=== PATIENT | female | born 1990 | race Caucasian/White ===

== ENCOUNTER → 2016-08-19 | Outpatient (CLI) | payer OTHER ==
[~2016-08-19] MED LIST: BIRTH CONTROL PO; CYCL10TA9; DICY20TA57 PO; MELO15TA14; ONDAN4ODT PO; OXYC-12 PO; PREN1TAB14 PO; RNT150T PO; TRM50T PO
--- NOTE | 2016-08-19 17:02 | Diagnostic Imaging Report ---
US NON OB PELVIS COMP/TRANSVAG INDICATION: Irregular bleeding. COMPARISONS: None available. TECHNIQUE: Transabdominal and transvaginal grayscale, color Doppler and pulse duplex imaging of the pelvis was performed. FINDINGS: The uterus measures 8.0 x 5.4 x 3.8 cm. The myometrium is normal in echogenicity without discrete mass. The endometrium measures up to 0.2 cm where visualized, and is normal in echogenicity. The right ovary measures 3.5 x 2.2 x 2.8 cm. The left ovary is not visualized due to overlying bowel gas. Right ovary has a normal blood flow within it by color Doppler imaging. No suspicious adnexal mass or fluid collection. No free pelvic fluid. IMPRESSION: 1. Normal appearance of the endometrium measuring up to 0.2 cm. 2. No myometrial mass, such as fibroid. 3. Normal right ovary. Left ovary is obscured by overlying bowel gas. Dictated by: Dictated on workstation # [id number]
== END ==
LOC: RAD 15:41
PROVIDERS: ATTEND Nurse Practitioner
DX: N93.8 Other specified abnormal uterine and vaginal bleeding (principal)
CPT/HCPCS: 76830; 76856

== ENCOUNTER → 2019-11-30 | Outpatient (CLI) | payer OTHER ==
--- NOTE | 2019-11-30 16:21 | Diagnostic Imaging Report ---
PROCEDURE: US non-OB pelvis comp/trans. TECHNIQUE: Multiple realtime grayscale images were obtained of the pelvis in various projections, endovaginally. Transabdominal imaging was also performed. INDICATION: Pelvic pain. COMPARISON: Correlation is made with prior pelvic ultrasound from 08/19/2016. FINDINGS: The uterus is anteverted, measuring 8.8 x 4.0 x 5.2 cm. Endometrium is 8 mm in thickness. No myometrial mass is detected. Right ovary measures 3.1 x 2.7 x 2.4 cm and the left ovary measures 3.5 x 2.5 x 1.8 cm. There is a questionable hypoechoic mass involving the right ovary approximately 2.4 cm in diameter. This could represent a hemorrhagic cyst. The right ovary is unremarkable. Right ovary contains small follicles. No free fluid is seen. There is blood flow, bilaterally. IMPRESSION: Questionable hypoechoic mass in the left ovary, perhaps a hemorrhagic cyst. Continued follow-up is recommended to confirm resolution. No other significant abnormality is detected. Dictated on workstation # [id number]
== END ==
LOC: RAD 14:15
PROVIDERS: ATTEND Surgery
DX: N83.201 Unspecified ovarian cyst, right side (principal)
CPT/HCPCS: 76830; 76856

== ENCOUNTER 2021-03-23 05:33 | Outpatient (CLI) | payer OTHER ==
[~2021-03-23] VITALS: Ht 165 cm; Wt 73.2 kg
[2021-03-23] MEDS ORDERED: MULTIVITAMIN (11:17)
[2021-03-23] MEDS ORDERED: VITAMIN B12 (11:17)
[2021-03-23] MEDS ORDERED: VENL75CA93 PO (11:17)
[2021-03-23] MEDS ORDERED: BIOTIN (11:17)
== END 2021-03-23 11:19 | disposition home or self-care (01) ==
LOC: PREOP 05:33
PROVIDERS: ATTEND Obstetrics & Gynecology
DX: Z01.818 Encounter for other preprocedural examination (principal)

== ENCOUNTER 2021-03-30 07:50 | Day surgery (SDC) | payer OTHER ==
[2021-03-30] VITALS (12 sets, daily range): BP systolic 86–120; BP diastolic 56–76
[~2021-03-30] VITALS: Ht 165 cm; Wt 73.2 kg
[~2021-03-30 07:50] MED LIST changes: +BIOTIN; +MULTIVITAMIN; +VENL75CA93 PO; +VITAMIN B12
[2021-03-30] MEDS: LACTATED RINGERS 1,000 ML IV PRN ×2 (08:26→10:10)
[2021-03-30] MEDS ORDERED: BUPIVACAINE 0.25% 30 ML (SENSORCAINE) VIAL ONE (08:38)
[2021-03-30 08:44] LABS: BASOPHILS # (AUTO) 0.1 10^3/uL (0.0-0.1); BASOPHILS % (AUTO) 2 % (0-10); EOSINOPHILS # (AUTO) 0.2 10^3/uL (0.0-0.3); EOSINOPHILS % (AUTO) 4 % (0-10); HEMATOCRIT 38 % (35-52); HEMOGLOBIN 12.8 g/dL (11.5-16.0); LYMPHOCYTES # (AUTO) 1.3 10^3/uL (1.0-4.0); LYMPHOCYTES % (AUTO) 25 % (12-44); MEAN CORPUSCULAR HEMOGLOBIN 31 pg (25-34); MEAN CORPUSCULAR HGB CONC 33 g/dL (32-36); MEAN CORPUSCULAR VOLUME 92 fL (80-99); MEAN PLATELET VOLUME 10.7 fL (9.0-12.2); MONOCYTES # (AUTO) 0.5 10^3/uL (0.0-1.0); MONOCYTES % (AUTO) 10 % (0-12); NEUTROPHILS # (AUTO) 3.1 10^3/uL (1.8-7.8); NEUTROPHILS % (AUTO) 59 % (42-75); PLATELET COUNT 293 10^3/uL (130-400); WHITE BLOOD COUNT 5.2 10^3/uL (4.3-11.0)
[2021-03-30] MEDS ORDERED: ROCURONIUM 10 MG/ML 5 ML SYRINGE IV ONE (09:20)
[2021-03-30] MEDS ORDERED: GLYCOPYRROLATE 0.2 MG/ML (ROBINUL) 2 ML VIAL ONE (09:20)
[2021-03-30] MEDS ORDERED: fentaNYL INJ 100 MCG/2 ML AMP ONE (09:20)
[2021-03-30] MEDS ORDERED: proPOfol 200 MG/20 ML (DIPRIVAN) VIAL IV ONE (09:20)
[2021-03-30] MEDS ORDERED: MIDAZOLAM 2 MG/2 ML (VERSED) VIAL ONE (09:20)
[2021-03-30] MEDS ORDERED: LIDOCAINE PF 2% 5 ML (XYLOCAINE) VIAL ONE (09:20)
[2021-03-30] MEDS ORDERED: ONDANSETRON 4 MG/2 ML (SDV) Z0FRAN ONE (09:20)
[2021-03-30] MEDS ORDERED: NEOSTIGMINE 3 MG/3 ML VIAL ONE (09:20)
--- NOTE | 2021-03-30 09:43 | Progress Note-Pre Operative ---
Pre-Operative Progress Note H&P Reviewed The H&P was reviewed, patient examined and no changes noted. Date Seen by Provider: Mar 30, 2021 Time Seen by Provider: 09:35 Date H&P Reviewed: Mar 30, 2021 Time H&P Reviewed: 09:35 Pre-Operative Diagnosis: CPP, Dysmenorrhea, Dyspareunia JIMMIE PORTILLO DO Mar 30, 2021 09:43
[2021-03-30] MEDS ORDERED: ONDANSETRON 4 MG/2 ML (SDV) Z0FRAN IVP PRN ×2 (09:45→11:30)
[2021-03-30] MEDS ORDERED: KETOROLAC 30 MG/ML VIAL IVP ONE (09:45)
[2021-03-30] MEDS ORDERED: D5 LR IV SOLUTION 1,000 ML IV SCH (09:45)
[2021-03-30] MEDS ORDERED: HYDROcodone/APAP 5 MG/325 MG (LORTAB) TAB PO PRN (09:45)
[2021-03-30] MEDS ORDERED: ACHD5005 PO (09:46)
[2021-03-30] MEDS ORDERED: IBUP-1773 PO (09:46)
--- NOTE | 2021-03-30 09:47 | Discharge Inst-Women's Service ---
Discharge Inst-Women's Serv Depart Medication/Instructions New, Converted or Re-Newed RX: RX on Chart Problems Reviewed?: Yes Consults/Follow Up Additional Follow Up: Yes Orders/Referrals Dr. Mccormack in 7-10 days Activity Activity: Activity as Tolerated Driving Instructions: You May Drive (do not drive while taking narcotic pain meds) NO SMOKING: NO SMOKING Nothing Inside Vagina: No Douching, No [place], No Tampons Diet Discharge Diet: No Restrictions Symptoms to Report to : Bleeding Excessive, Pain Increased, Fever Over 101 Degrees F, Vaginal Bleeding Increase, Questions/Concerns For Any Problems or Questions: Contact Your Physician Skin/Wound Care Infection Signs and Symptoms: Increased Redness, Foul Odor of Wound, Increased Drainage, Skin Itchy or Has a Rash, Increased Swelling, Temperature Above 101 F Operative Area Clean and Dry: Keep Incision Clean/Dry Stitches/Elijah/Dermabond: Dermabond, Care of Stitches Bathing Instructions: JIMMIE Juarez DO Mar 30, 2021 09:47
[2021-03-30] MEDS ORDERED: KETOROLAC 30 MG/ML VIAL ONE (11:13)
[2021-03-30] MEDS ORDERED: morphine INJ 10 MG/ML 1ML (SYR OR VIAL) IVP ONE (11:30)
[2021-03-30] MEDS ORDERED: HYDROmorphone 2 MG/ML VIAL (DILAUDID) IV ONE (11:30)
--- NOTE | 2021-03-30 13:15 | Anesthesia-General Post-Op ---
General Patient Condition Mental Status/LOC: Same as Preop Cardiovascular: Satisfactory Nausea/Vomiting: Absent Respiratory: Satisfactory Pain: Controlled Complications: Absent Post Op Complications Complications None Follow Up Care/Instructions Patient Instructions None needed. Anesthesia/Patient Condition Patient Condition Patient is already discharged to home but she was doing well, no complaints, stable vital signs, no apparent adverse anesthesia problems per nursing staff. CRUZ NGO DO Mar 30, 2021 13:15
[2021-03-30] MEDS ORDERED: SEVOFLURANE (ULTANE) 15 ML INHAL SOLN ONE ×2 (13:21→13:22)
--- NOTE | 2021-03-30 19:54 | OPERATIVE REPORT ---
DATE OF SERVICE: 03/30/2021 PREOPERATIVE DIAGNOSES: 1. A 30-year-old female with chronic pelvic pain. 2. Dyspareunia. 3. Dysmenorrhea. POSTOPERATIVE DIAGNOSES: 1. A 30-year-old female with chronic pelvic pain. 2. Dyspareunia. 3. Dysmenorrhea. 4. Bilateral hydrosalpinx and endometriosis implants. PROCEDURES PERFORMED: Laparoscopic bilateral salpingectomy with cauterization of peritoneal endometriosis implants. SURGEON: Jimmie Mccormack DO. MEDICAL DETAIL REPRESENTATIVE: Ruchi Villalba DNP, who was necessary for manipulation and retraction throughout the procedure. ANESTHESIA: General endotracheal. ESTIMATED BLOOD LOSS: Minimal. URINE OUTPUT: 150 mL clear at the end of the procedure. FLUIDS: 1000 mL of lactated Ringer's solution. FINDINGS: A grossly normal-appearing uterus with endometriosis implants of the posterior cul-de-sac including the uterosacral ligaments bilaterally and the ovarian fossa to the right. There are also endometriosis implants of the vesicouterine peritoneum. Tubes bilaterally were noted to have a hydrosalpinx with multiple clips across the fallopian tubes and evidence of prior tubal ligation. SPECIMEN SENT: Bilateral fallopian tubes. INDICATIONS FOR PROCEDURE: This 30-year-old female patient, who is consulted to me from Sandra Hayes, nurse practitioner for evaluation of chronic pelvic pain and consider a diagnostic laparoscopy. The patient reported pain ever since her tubal ligation, which was performed approximately two years ago. She has tried hormonal suppression with oral contraceptive pills and IUD in the past with no resolution in her symptoms. Therefore, she is desperate to proceed with more diagnostic procedures that could be definitive. Risk of diagnostic laparoscopy was reviewed with the patient in detail and after all of her questions were answered, consent was obtained in the preoperative area with her present and the patient was taken to the operating room. OPERATIVE REPORT IN DETAIL: Once in the operating room, general anesthesia was found to be adequate. She was placed in a dorsal lithotomy position and prepped and draped in a normal sterile fashion. A timeout was performed. A Ramirez catheter was placed using sterile technique. A weighted speculum inserted to the patient's vagina. A right angle retractor was used to visualize the cervix, which was grasped at 12 o'clock position using a long Allis clamp. I then gently sounded the uterine cavity, depth was found to be 8 cm. I placed a Kronner uterine manipulator to a depth of 8 cm deploying the balloon within the uterine cavity and removed all the other instruments from the patient's vagina, performed a change of gloves and took my attention to the abdomen, where a fingerbreadth below the subcostal margin and midclavicular line on the left, I placed a Veress needle through the skin and into the peritoneal cavity using a saline drop test. I was able to confirm intraperitoneal placement. I then proceeded with insufflation using CO2 gas and opening pressure of 2 mmHg was noted. I proceeded to maximum pressure of 15 mmHg, at which point, I made an infraumbilical incision that is 5 mm and directed a 5 mm blunt laparoscopic trocar through the incision until intraperitoneal placement was confirmed using a laparoscope. A brief scanning of the upper abdominal anatomy revealed no evidence of damage upon my Veress entry site. I removed the Veress needle at that point. I then had the patient placed in a steep Trendelenburg, which I was able to visualize all my pelvic anatomy as defined in my findings above. I then placed a suprapubic trocar; it was a 12 mm trocar. The skin was infiltrated using 0.25% Marcaine. A 12 mm incision was made with a knife and the trocar was placed under direct visualization of the laparoscope. Once this trocar was in place, I removed bilateral fallopian tubes while performing the following dissection bilaterally. Using a LigaSure device, I transected the proximal isthmic portion of the fallopian tube and took this dissection down the mesosalpinx, amputating bilateral fallopian tubes from the surrounding blood supply and removing the remainder of the clips from the mesosalpinx. Once this was done bilaterally, there was no active bleeding noted from either one of my dissection planes. I then cauterized the endometriosis implants that I identified and discussed in my findings above using a J hook cautery, after which, there was found to be no active bleeding from any of my dissection planes. I copiously irrigated the pelvis using normal saline with no active bleeding noted from any of my dissection planes. I then removed the suprapubic trocar under direct visualization of the laparoscope and infraumbilical trocar was left in place to release insufflation and introduced 10 mL of 0.25% Marcaine into the peritoneal cavity for postoperative pain management. I then removed this trocar as well. The fascia of the larger trocar site was reapproximated using 0 Vicryl suture in an interrupted fashion. The skin of both sites was then closed using 4-0 Monocryl in an interrupted subcuticular stitches. Dermabond was applied to the incision and Band-Aids were placed over the incisions as well. Ramirez catheter and Kronner uterine manipulator was removed at the end of the procedure. The patient tolerated the procedure well and was taken to the recovery area in a stable condition. Lap and sponge counts were correct at the end of the procedure. Instrument counts were correct as well. Job ID: [id number] DocumentID: [id number] Dictated Date: 03/30/2021 11:00:02 Driver Starting Gate Date: 03/30/2021 19:53:43 Dictated By: JIMMIE MCCORMACK DO
== END 2021-03-30 12:58 | disposition home or self-care (01) ==
LOC: SDC 07:50
PROVIDERS: ATTEND Obstetrics & Gynecology
DX: N70.11 Chronic salpingitis (principal); N80.9 Endometriosis, unspecified; N94.10 Unspecified dyspareunia; F41.9 Anxiety disorder, unspecified; Z98.51 Tubal ligation status; Z79.899 Other long term (current) drug therapy
CPT/HCPCS: 36415; 84703; 85025; 86850; 86900; 86901; 87081; 88302

== ENCOUNTER → 2021-08-28 | Outpatient (CLI) | payer OTHER ==
[~2021-08-28] MED LIST changes: +ACHD5005 PO; +IBUP-1773 PO
--- NOTE | 2021-08-28 15:29 | Diagnostic Imaging Report ---
PROCEDURE: Pelvic comp/transvaginal sonogram. TECHNIQUE: Complete transabdominal and transvaginal pelvic ultrasound was performed. In addition, limited pelvic Doppler was performed. INDICATION: Abnormal uterine bleeding. Uterus is anteverted measuring 8.0 x 4.2 x 5.7 cm. Endometrium is 3 mm in thickness. No myometrial masses detected. Right ovary measures 3.1 x 1.5 x 2.8 cm and the left ovary measures 2.8 x 2.0 x 2.5 cm. There is blood flow to the ovaries. Ovaries contain small follicles. No adnexal mass or free fluid is detected. IMPRESSION: Unremarkable transabdominal and transvaginal pelvic ultrasound. Dictated by: Dictated on workstation # [id number]
== END ==
LOC: RAD 14:00
PROVIDERS: ATTEND Obstetrics & Gynecology
DX: N93.9 Abnormal uterine and vaginal bleeding, unspecified (principal)
CPT/HCPCS: 76830; 76856

== ENCOUNTER 2021-09-21 05:29 | Outpatient (CLI) | payer OTHER ==
[~2021-09-21] VITALS: Ht 165.1 cm; Wt 78.1 kg
== END 2021-09-21 14:00 ==
LOC: PREOP 05:29
PROVIDERS: ATTEND Obstetrics & Gynecology
DX: Z01.818 Encounter for other preprocedural examination (principal)

== ENCOUNTER 2021-09-28 07:29 | Day surgery (SDC) | payer OTHER ==
[2021-09-28] VITALS (12 sets, daily range): BP systolic 102–123; BP diastolic 72–85
[~2021-09-28] VITALS: Ht 165.1 cm; Wt 78.1 kg
--- NOTE | 2021-09-28 08:05 | Progress Note-Pre Operative ---
Pre-Operative Progress Note H&P Reviewed The H&P was reviewed, patient examined and no changes noted. Date Seen by Provider: Sep 28, 2021 Time Seen by Provider: 08:00 Date H&P Reviewed: Sep 28, 2021 Time H&P Reviewed: 08:00 Pre-Operative Diagnosis: JIMMIE CONKLIN DO Sep 28, 2021 08:05
--- NOTE | 2021-09-28 08:09 | Discharge Inst-Women's Service ---
Discharge Inst-Women's Serv Depart Medication/Instructions New, Converted or Re-Newed RX: Transmitted to Pharmacy Problems Reviewed?: Yes Consults/Follow Up Additional Follow Up: Yes Orders/Referrals Dr. Portillo in 2 weeks Activity Activity: Activity as Tolerated Driving Instructions: You May Drive NO SMOKING: NO SMOKING Nothing Inside Vagina: No Douching, No [place], No Tampons Diet Discharge Diet: No Restrictions Symptoms to Report to : Bleeding Excessive, Pain Increased, Fever Over 101 Degrees F, Vaginal Bleeding Increase, Questions/Concerns For Any Problems or Questions: Contact Your Physician Skin/Wound Care Infection Signs and Symptoms: Increased Redness, Foul Odor of Wound, Increased Drainage, Skin Itchy or Has a Rash, Increased Swelling, Temperature Above 101 F Operative Area Clean and Dry: Keep Incision Clean/Dry JIMMIE PORTILLO DO Sep 28, 2021 08:09
[2021-09-28] MEDS ORDERED: IBUP-1773 PO (08:10)
[2021-09-28] MEDS ORDERED: ACHD5005 PO (08:10)
[2021-09-28] MEDS ORDERED: KETOROLAC 30 MG/ML VIAL IVP ONE (08:15)
[2021-09-28] MEDS ORDERED: HYDROcodone/APAP 5 MG/325 MG (LORTAB) TAB PO PRN (08:15)
[2021-09-28] MEDS ORDERED: ONDANSETRON 4 MG/2 ML (SDV) Z0FRAN IVP PRN ×2 (08:15→11:00)
[2021-09-28] MEDS ORDERED: D5 LR IV SOLUTION 1,000 ML IV SCH (08:15)
[2021-09-28 08:33] LABS: BASOPHILS # (AUTO) 0.1 10^3/uL (0.0-0.1); BASOPHILS % (AUTO) 1 % (0-10); EOSINOPHILS # (AUTO) 0.2 10^3/uL (0.0-0.3); EOSINOPHILS % (AUTO) 5 % (0-10); HEMATOCRIT 38 % (35-52); HEMOGLOBIN 12.5 g/dL (11.5-16.0); LYMPHOCYTES # (AUTO) 1.6 10^3/uL (1.0-4.0); LYMPHOCYTES % (AUTO) 32 % (12-44); MEAN CORPUSCULAR HEMOGLOBIN 30 pg (25-34); MEAN CORPUSCULAR HGB CONC 33 g/dL (32-36); MEAN CORPUSCULAR VOLUME 90 fL (80-99); MEAN PLATELET VOLUME 10.5 fL (9.0-12.2); MONOCYTES # (AUTO) 0.6 10^3/uL (0.0-1.0); MONOCYTES % (AUTO) 11 % (0-12); NEUTROPHILS # (AUTO) 2.5 10^3/uL (1.8-7.8); NEUTROPHILS % (AUTO) 50 % (42-75); PLATELET COUNT 285 10^3/uL (130-400)
[2021-09-28] MEDS: LACTATED RINGERS 1,000 ML IV PRN ×2 (08:36→10:41)
[2021-09-28] MEDS ORDERED: BUPIVACAINE 0.25% 30 ML (SENSORCAINE) VIAL ONE (09:19)
[2021-09-28] MEDS ORDERED: fentaNYL INJ 100 MCG/2 ML AMP ONE (09:25)
[2021-09-28] MEDS ORDERED: MIDAZOLAM 2 MG/2 ML (VERSED) VIAL ONE (09:26)
[2021-09-28] MEDS ORDERED: proPOfol 200 MG/20 ML (DIPRIVAN) VIAL IV ONE (10:35)
[2021-09-28] MEDS ORDERED: LIDOCAINE PF 2% 5 ML (XYLOCAINE) VIAL ONE (10:35)
[2021-09-28] MEDS ORDERED: ONDANSETRON 4 MG/2 ML (SDV) Z0FRAN ONE (10:35)
[2021-09-28] MEDS ORDERED: SEVOFLURANE (ULTANE) 15 ML INHAL SOLN ONE (10:42)
[2021-09-28] MEDS ORDERED: morphine INJ 10 MG/ML 1ML (SYR OR VIAL) IVP ONE (11:00)
[2021-09-28] MEDS ORDERED: KETOROLAC 30 MG/ML VIAL ONE (11:02)
--- NOTE | 2021-09-28 11:59 | Anesthesia-General Post-Op ---
General Patient Condition Mental Status/LOC: Same as Preop Cardiovascular: Satisfactory Nausea/Vomiting: Absent Respiratory: Satisfactory Pain: Controlled Complications: Absent Post Op Complications Complications None Follow Up Care/Instructions Patient Instructions None needed. Anesthesia/Patient Condition Patient Condition Patient is doing well, no complaints, stable vital signs, no apparent adverse anesthesia problems. CRUZ NGO DO Sep 28, 2021 11:59
--- NOTE | 2021-09-28 19:17 | OPERATIVE REPORT ---
DATE OF SERVICE: 09/28/2021 PREOPERATIVE DIAGNOSIS: A 30-year-old female with heavy abnormal uterine bleeding. POSTOPERATIVE DIAGNOSIS: A 30-year-old female with heavy abnormal uterine bleeding. PROCEDURE: D and C with Estella endometrial ablation. SURGEON: Pete Portillo DO ANESTHESIA: LMA general. ESTIMATED BLOOD LOSS: Minimal. URINE OUTPUT: 50 mL drained at the start of procedure. FLUIDS: 800 mL lactated Ringer's solution. FINDINGS: A grossly normal appearing external female genitalia, grossly normal appearing endometrium with a copious amount of fluffy endometrial tissue. SPECIMEN SENT: Endometrial curettings. INDICATIONS FOR PROCEDURE: This 30-year-old female is a patient who had sought care for ongoing issues with heavy vaginal bleeding with her periods and they are now becoming heavier and longer and more painful. Due to the patient's concern with the heaviness of the periods, we discussed conservative options. She had already tried an IUD and contraceptives in the past without any relief. Finally, I discussed endometrial ablation since the patient had had a tubal ligation and the risk of was very low. I discussed with the patient endometrial ablation and performed a D and C at the same time. Risks of procedure were discussed with the patient in detail including risk of bleeding, damage to the uterus itself, postoperative complications that may occur, risk from anesthesia, recovery timeframe. After everything was discussed with the patient in detail, consent was obtained and the patient was taken to the operating room. OPERATIVE REPORT IN DETAIL: Once in the operating room, general anesthesia was found to be adequate. The patient was placed in dorsal lithotomy position, prepped and draped in normal sterile fashion. A weighted speculum was inserted to the patient's vagina after a timeout was performed. A right-angle retractor was utilized. Cervix was grasped at 12 o'clock position using a long single tooth tenaculum. I then gently sounded the uterine cavity, depth was found to be approximately 8 cm. I then gently dilated the cervix to approximately 6 mm to allow placement of a hysteroscope. Once this was done, I used a hysteroscope to advance into the uterus and using the [employer] fluid management system and normal saline as my visual medium, I advanced the hysteroscope and I am able to visualize the endometrial cavity, which appears to be grossly normal with the exception of excessive amounts of fluffy endometrial tissue. I then removed the hysteroscope and performed a gentle curettage of the entire endometrial cavity. After this was performed and the specimen was collected and sent as endometrial curettings. I then sounded the cavity depth using the Estella device and found to have a uterine endometrial cavity approximately 4 cm. I set the Estella device to 4 cm. I advanced it into the uterus where I deployed the wings of the device and set it into the endometrial cavity appropriately. I then filled the seal balloon at the cervix and performed the device check using the Estella which was successful. I then activated the Estella device and after 120 seconds of ablation removed the device after I removed the insufflation to the cervix seal. Once the device was removed, I performed a second hysteroscopy and there is evidence of good endometrial charring effect throughout the entire cavity after which I removed the hysteroscope. The patient tolerated the procedure well and sent to recovery area in stable condition. Lap and sponge counts were correct at the end of the procedure. Instrument counts correct as well. All instruments removed from the patient's vagina. Job ID: [id number] DocumentID: [id number] Dictated Date: 09/28/2021 11:55:19 Calender Let Off Helper Date: 09/28/2021 19:16:38 Dictated By: PETE PORTILLO DO
== END 2021-09-28 16:28 | disposition home or self-care (01) ==
LOC: SDC 07:29
PROVIDERS: ATTEND Obstetrics & Gynecology
DX: N92.0 Excessive and frequent menstruation with regular cycle (principal); N94.6 Dysmenorrhea, unspecified; N93.0 Postcoital and contact bleeding; Z98.51 Tubal ligation status
CPT/HCPCS: 36415; 84703; 85025; 86850; 86900; 86901; 87081

== ENCOUNTER → 2021-11-04 | Outpatient (CLI) | payer OTHER ==
[~2021-11-04] VITALS: Ht 165.1 cm; Wt 75.0 kg
== END ==
LOC: PREOP 07:50
PROVIDERS: ATTEND Obstetrics & Gynecology
DX: Z01.818 Encounter for other preprocedural examination (principal)

== ENCOUNTER 2021-11-09 07:33 | Day surgery (SDC) | payer OTHER ==
[2021-11-09] VITALS (10 sets, daily range): BP systolic 112–133; BP diastolic 64–88
[~2021-11-09] VITALS: Ht 165.1 cm; Wt 75.0 kg
[2021-11-09] MEDS ORDERED: ceFAZolin 2 GM IV Premixed 50 ML IV ONE (07:45)
[2021-11-09] MEDS ORDERED: metroNIDAZOLE 500MG/100ML IVPB 100 ML IV ONE (07:45)
[2021-11-09] MEDS: LACTATED RINGERS 1,000 ML IV PRN ×2 (08:00→09:40)
[2021-11-09 08:07] LABS: BASOPHILS # (AUTO) 0.1 10^3/uL (0.0-0.1); BASOPHILS % (AUTO) 1 % (0-10); EOSINOPHILS # (AUTO) 0.2 10^3/uL (0.0-0.3); EOSINOPHILS % (AUTO) 3 % (0-10); HEMATOCRIT 42 % (35-52); HEMOGLOBIN 14.2 g/dL (11.5-16.0); LYMPHOCYTES # (AUTO) 1.6 10^3/uL (1.0-4.0); LYMPHOCYTES % (AUTO) 24 % (12-44); MEAN CORPUSCULAR HEMOGLOBIN 31 pg (25-34); MEAN CORPUSCULAR HGB CONC 34 g/dL (32-36); MEAN CORPUSCULAR VOLUME 91 fL (80-99); MEAN PLATELET VOLUME 10.3 fL (9.0-12.2); MONOCYTES # (AUTO) 0.6 10^3/uL (0.0-1.0); MONOCYTES % (AUTO) 8 % (0-12); NEUTROPHILS # (AUTO) 4.2 10^3/uL (1.8-7.8); NEUTROPHILS % (AUTO) 64 % (42-75); PLATELET COUNT 321 10^3/uL (130-400); WHITE BLOOD COUNT 6.6 10^3/uL (4.3-11.0)
[2021-11-09] MEDS ORDERED: BUPIVACAINE 0.25% 10 ML (SENSORCAINE) VIAL ONE (08:11)
--- NOTE | 2021-11-09 08:39 | Progress Note-Pre Operative ---
Pre-Operative Progress Note H&P Reviewed The H&P was reviewed, patient examined and no changes noted. Date Seen by Provider: Nov 09, 2021 Time Seen by Provider: 08:35 Date H&P Reviewed: Nov 09, 2021 Time H&P Reviewed: 08:35 Pre-Operative Diagnosis: AUB, Menorhagia JIMMIE PORTILLO DO Nov 09, 2021 08:39
--- NOTE | 2021-11-09 08:42 | Discharge Inst-Women's Service ---
Discharge Inst-Women's Serv Depart Medication/Instructions New, Converted or Re-Newed RX: Transmitted to Pharmacy Final Diagnosis POD 0 RATLH Problems Reviewed?: Yes Consults/Follow Up Additional Follow Up: Yes Orders/Referrals Dr. Mccormack in 7-10 days and in 8 weeks Activity Activity: Activity as Tolerated Driving Instructions: No Driving for 1 Week NO SMOKING: NO SMOKING Nothing Inside Vagina: No Douching, No [place], No Tampons Diet Discharge Diet: No Restrictions Symptoms to Report to : Bleeding Excessive, Pain Increased, Fever Over 101 Degrees F, Vaginal Bleeding Increase, Questions/Concerns For Any Problems or Questions: Contact Your Physician Skin/Wound Care Infection Signs and Symptoms: Increased Redness, Foul Odor of Wound, Increased Drainage, Skin Itchy or Has a Rash, Increased Swelling, Temperature Above 101 F Operative Area Clean and Dry: Keep Incision Clean/Dry Stitches/Robbins/Dermabond: Dermabond, Care of Stitches Bathing Instructions: JIMMIE Juarez DO Nov 09, 2021 08:42
[2021-11-09] MEDS ORDERED: BENZ1LOZ61 MM (08:43)
[2021-11-09] MEDS ORDERED: IBUP-844 PO (08:43)
[2021-11-09] MEDS ORDERED: SMT80CT PO (08:43)
[2021-11-09] MEDS ORDERED: HYDR-34 PO (08:43)
[2021-11-09] MEDS ORDERED: DOCU100C37 PO (08:43)
[2021-11-09] MEDS ORDERED: LACTATED RINGERS 1,000 ML IV SCH (08:45)
[2021-11-09] MEDS ORDERED: ANTACID SUSP 30 ML UDC (MYLANTA) PO PRN (08:45)
[2021-11-09] MEDS ORDERED: ONDANSETRON 4 MG/2 ML (SDV) Z0FRAN IV PRN (08:45)
[2021-11-09] MEDS ORDERED: DOCUSATE SODIUM 100 MG (COLACE) CAP PO PRN (08:45)
[2021-11-09] MEDS ORDERED: CHLORASEPTIC LOZENGE MM PRN (08:45)
[2021-11-09] MEDS ORDERED: HYDROcodone/APAP 7.5 MG/325 MG (LORTAB, LORCET PLUS) TABLET PO PRN (08:45)
[2021-11-09] MEDS ORDERED: NALOXONE 0.4 MG/ML 1 ML (NARCAN) VIAL IV PRN (08:45)
[2021-11-09] MEDS ORDERED: ZOLPIDEM 5 MG (AMBIEN) TAB PO PRN (08:45)
[2021-11-09] MEDS ORDERED: SIMETHICONE 80 MG (MYLICON) CHEW PO PRN (08:45)
[2021-11-09] MEDS ORDERED: proPOfol 200 MG/20 ML (DIPRIVAN) VIAL IV ONE (08:48)
[2021-11-09] MEDS ORDERED: GLYCOPYRROLATE 0.2 MG/ML (ROBINUL) 2 ML VIAL ONE (08:48)
[2021-11-09] MEDS ORDERED: NEOSTIGMINE 3 MG/3 ML VIAL ONE (08:48)
[2021-11-09] MEDS ORDERED: MIDAZOLAM 2 MG/2 ML (VERSED) VIAL ONE (08:48)
[2021-11-09] MEDS ORDERED: ROCURONIUM 10 MG/ML 5 ML SYRINGE IV ONE (08:48)
[2021-11-09] MEDS ORDERED: LIDOCAINE PF 2% 5 ML (XYLOCAINE) VIAL ONE (08:48)
[2021-11-09] MEDS ORDERED: ONDANSETRON 4 MG/2 ML (SDV) Z0FRAN ONE (08:48)
[2021-11-09] MEDS ORDERED: fentaNYL INJ 100 MCG/2 ML AMP ONE (08:48)
[2021-11-09] MEDS ORDERED: HYDROmorphone 2 MG/ML VIAL (DILAUDID) ONE (10:17)
[2021-11-09] MEDS ORDERED: ONDANSETRON 4 MG/2 ML (SDV) Z0FRAN IVP PRN (10:45)
[2021-11-09] MEDS ORDERED: HYDROmorphone 2 MG/ML VIAL (DILAUDID) IV ONE (10:45)
[2021-11-09] MEDS ORDERED: morphine INJ 10 MG/ML 1ML (SYR OR VIAL) IVP ONE (10:45)
[2021-11-09] MEDS ORDERED: SEVOFLURANE (ULTANE) 15 ML INHAL SOLN ONE (10:51)
[2021-11-09] MEDS ORDERED: IBUPROFEN 600 MG (MOTRIN) TAB PO SCH (12:00)
[2021-11-09] MEDS: KETOROLAC 30 MG/ML VIAL IVP PRN ×2 (12:47→18:28)
--- NOTE | 2021-11-09 14:45 | Anesthesia-General Post-Op ---
General Patient Condition Mental Status/LOC: Same as Preop Cardiovascular: Satisfactory Nausea/Vomiting: Absent Respiratory: Satisfactory Pain: Controlled Complications: Absent Post Op Complications Complications None Follow Up Care/Instructions Patient Instructions None needed. Anesthesia/Patient Condition Patient Condition Patient is doing well, no complaints, stable vital signs, no apparent adverse anesthesia problems. CRUZ NGO DO Nov 09, 2021 14:45
--- NOTE | 2021-11-09 15:56 | OPERATIVE REPORT ---
DATE OF SERVICE: PREOPERATIVE DIAGNOSES: 1. A 31-year-old female with abnormal uterine bleeding. 2. Menorrhagia. POSTOPERATIVE DIAGNOSES: 1. A 31-year-old female with abnormal uterine bleeding. 2. Menorrhagia. PROCEDURE: Robotic-assisted total laparoscopic hysterectomy. SURGEON: Pete Mccormack DO ADOBE FLEX DEVELOPER: Ruchi Villalba DNP, was necessary for manipulation and retraction throughout the procedure. ANESTHESIA: General endotracheal. ESTIMATED BLOOD LOSS: Minimal. URINE OUTPUT: 25 mL clear at the end of the procedure. FLUIDS: 1400 mL lactated Ringer's solution. FINDINGS: Grossly normal-appearing external female genitalia, grossly normal-appearing uterus on laparoscopic evaluation, evidence of prior tubal ligation with residual fallopian tissue atrophy. Grossly normal-appearing bilateral ovaries. SPECIMEN SENT: Uterus and cervix. INDICATIONS FOR PROCEDURE: This 31-year-old female is a patient who had sought care in my office for concerns with uncontrolled heavy bleeding. She had tried more conservative measures in the past including IUD, control pills, Depo-Provera injection. We also proceeded with D and C with endometrial ablation, all of which she continued to bleed despite those measures. Due to frustration and ongoing concern, the patient wished to proceed with a hysterectomy. Risks of procedure were discussed with the patient in detail including risk of bleeding, infection, damage to any surrounding structures including, but not limited to bowel, bladder, ureter, kidneys, possible need for reoperation, postoperative complications that may occur, risk from anesthesia, recovery timeframe, hospital stay. After everything was discussed with the patient in detail, consent was obtained in the preoperative area, the patient was taken to the operating room. OPERATIVE REPORT IN DETAIL: Once in the operating room, general anesthesia was found to be adequate. She was placed in dorsal lithotomy position, prepped and draped in normal sterile fashion. Timeout was performed. A Ramirez catheter placed using sterile technique. A weighted speculum inserted to the patient's vagina. Right angle retractor was used to visualize the cervix and 0 Vicryl suture was then placed in the anterior lip of the cervix and the suture was used in my retraction point on the cervix. I then gently sound the uterine cavity, depth was found to be 8 cm. I selected an 8 cm PHILIP uterine manipulator tip and a 3.5 cm colpotomy ring. The manipulator tip was advanced into the uterus and the balloon was deployed and the colpotomy ring was advanced around the vaginal fornix, which offers excellent bimanual manipulation on exam. I then removed all the other instruments from the patient's vagina, performed change of gloves and turned my attention to the abdomen, where subcostally at the midclavicular line on the left side. I introduced the Veress needle to intraperitoneal placement confirmed using saline drop test. An opening pressure of 4 mmHg was noted. I proceeded to maximum pressure of 15 mmHg, at which point I infiltrated the infraumbilical area using 0.25% Marcaine to make an 8 mm incision with a knife and directed a blunt laparoscopic da Amadou camera trocar through this incision until intraperitoneal placement was confirmed using da Amadou laparoscope. There was no evidence of damage from entry site. A brief scan of the upper abdominal anatomy appears to be grossly normal. There was no evidence of damage of the Veress entry site either and the Veress needle was removed at that point. I then had the patient placed in steep Trendelenburg and made visualize all my pelvic anatomy as defined in my findings above. I then placed lateral trocars. These were both 8 mm trocars approximately 8 cm lateral to my infraumbilical trocar. The skin was infiltrated using 0.25% Marcaine and incisions were made with a knife and the trocars were placed under direct visualization and laparoscope. Once these trocars were in place, I bring in the da Amadou robot and docked in appropriate fashion placing the vessel sealer in the left hand and monopolar beka in the right hand. I performed the following dissection bilaterally using the da Amadou operative console. Starting at the uteroovarian ligament, I sealed and transected using the vessel sealer, then sealed and transect the round ligament using the vessel sealer. I then sealed and transect the broad ligament down to the level of the lower uterine segment, at which point I the anterior and posterior leaflets of the broad ligament. Anterior leaflet was taken around to the anterior vaginal fornix and posterior leaflet was taken around to the posterior vaginal fornix. This allows me to skeletonize the uterine vessels laterally, which I sealed and transected using vessel sealer. I then created a colpotomy at 12 o'clock position using monopolar beka and took this circumferentially around the vaginal fornix amputating the cervix away from the vagina. The entire specimen was then removed through the vagina. I then closed the lateral vaginal apices of the vaginal cuff using 2-0 Vicryl suture in a [id number] fashion. Colpo suspended to the uterosacral ligaments. I then closed the remainder of the vaginal cuff using 2-0 V-Loc in a running fashion, after which there was no active bleeding noted from any of my dissection planes. I then copiously irrigated the pelvis using normal saline. No active bleeding noted from any of my dissection planes. I undocked the da Amadou robot and proceeded with remainder of the case laparoscopically. I covered the planes of dissection including the vaginal cuff using Surgiflo hemostatic agent to ensure excellent postoperative hemostasis. The patient was taken out of steep Trendelenburg where I released insufflation, I removed the lateral trocars under direct visualization of the laparoscope. The infraumbilical trocars left in place to remainder of the insufflation and to introduce 10 mL of 0.25% Marcaine into the peritoneal cavity for postoperative pain management. I then removed this trocar as well. The skin reapproximated using 4-0 Monocryl in interrupted subcuticular stitches. Dermabond was applied to the incisions and Band-Aids placed over the incisions as well. The patient tolerated the procedure well. The infant was taken to recovery area in stable condition. Lap and sponge counts were correct at the end of procedure. Instrument counts correct as well. Two grams of Ancef, 500 mg of Flagyl were given preoperatively for infection prophylaxis. Job ID: [id number] DocumentID: [id number] Dictated Date: 11/09/2021 10:26:15 Paper Ruler Date: 11/09/2021 15:55:12 Dictated By: DO VIRA AGARWAL
== END 2021-11-09 20:15 | disposition home or self-care (01) ==
LOC: SDC 07:33 → WS 11:30 → SDC 20:15
PROVIDERS: ATTEND Obstetrics & Gynecology
DX: N93.9 Abnormal uterine and vaginal bleeding, unspecified (principal); N85.8 Other specified noninflammatory disorders of uterus; N92.0 Excessive and frequent menstruation with regular cycle; N99.85 Post endometrial ablation syndrome
CPT/HCPCS: 36415; 84703; 85025; 86850; 86900; 86901; 87081; 88307